=== PATIENT | female | born 1970 | race Two or more races ===

== ENCOUNTER 2021-01-12 12:13 | Inpatient (IN) | payer MEDICAID, OTHER ==
[~2021-01-12] VITALS: Ht 162.6 cm; Wt 118.9 kg
[2021-01-12 13:35] LABS: BASOPHILS % 0.4 % (0.0-2.0); HEMATOCRIT. 48.4 % (36.0-48.0); HEMOGLOBIN. 15.7 g/dL (12.0-16.0); LYMPHOCYTES % 24.7 % (20.0-50.0); MEAN CORPUSCULAR HEMOGLOBIN 24.5 pg (28.0-32.0); MEAN CORPUSCULAR VOLUME 75.5 fL (81.0-99.0); MEAN PLATELET VOLUME 9.8 fl (7.4-10.4); MONOCYTES % 9.7 % (2.0-8.0); NEUTROPHILS % 65.2 % (40.0-76.0); PLATELET 181 x1000/uL (130-400); RED BLOOD CELL COUNT 6.42 mill/uL (4.2-5.4); RED CELL DISTRIBUTION WIDTH 14.9 % (11.6-14.6)
[2021-01-12 13:43] LABS: CHLORIDE 95 mEq/L (98-107)
[2021-01-12] MEDS ORDERED: ALBUTEROL 6.7GM HFA INHALER ORI PRN (19:00)
[2021-01-12] MEDS ORDERED: DEXTROSE 50% WATER 50ML SYRINGE IV PRN (19:00)
[2021-01-12] MEDS ORDERED: PROMETHAZINE/DEXTROMETHORPHAN 6.25-15MG/5ML BOTTLE 120ML PO PRN (19:00)
[2021-01-12] MEDS ORDERED: BENZONATATE 200MG CAPSULE PO PRN (19:00)
[2021-01-12] MEDS ORDERED: ONDANSETRON HCL 4MG/2ML INJ IV PRN (19:00)
[2021-01-12] MEDS ORDERED: CLONIDINE 0.1MG TABLET PO PRN (19:00)
[2021-01-12] MEDS ORDERED: MAGNESIUM/ALUMINUM HYDROXIDE/SIMETHICONE 30ML UDC PO PRN (19:00)
[2021-01-12] MEDS ORDERED: ACETAMINOPHEN 325MG TABLET PO PRN (19:00)
[2021-01-12] MEDS ORDERED: DEXAMETHASONE 10 MG/ML VIAL IV NR (19:30)
[2021-01-12] MEDS ORDERED: AZITHROMYCIN 500 MG in DEXT 5% WATER 250 ML IV SCH (20:00)
[2021-01-12] MEDS ORDERED: ERGOCALCIFEROL 50000UNITS CAPSULE PO NR (20:00)
[2021-01-12] MEDS ORDERED: CEFTRIAXONE 1 G PREMIX 50 ML IV SCH (20:00)
[2021-01-12] MEDS ORDERED: ZOLPIDEM TARTRATE 5MG TABLET PO PRN (21:00)
[2021-01-12] MEDS: BLOOD SUGAR DIAGNOSTIC STRIP TEST SCH (21:00)
[2021-01-12] MEDS: GUAIFENESIN 600MG ER TABLET PO SCH (21:03)
[2021-01-12] MEDS: AMLODIPINE 5MG TABLET PO SCH (21:03)
[2021-01-12] MEDS: INSULIN LISPRO 100 UNITS/ML SUBCUT SCH (21:04)
[2021-01-12] MEDS: ENOXAPARIN 40MG/0.4ML SYR SUBCUT SCH (21:04)
[2021-01-12] MEDS: FAMOTIDINE 20MG TABLET PO SCH (21:05)
[2021-01-12] MEDS ORDERED: INSULIN GLARGINE UD 100 UNITS/ML SYR SUBCUT SCH (22:00)
[2021-01-12] MEDS: SODIUM CHLORIDE 0.9% INJ 3ML FLUSH IVF SCH (22:06)
[2021-01-12 23:10] VITALS: BP 92/40
[2021-01-12] MEDS: ACETAMINOPHEN 325MG TABLET PO PRN (23:32)
[2021-01-13] VITALS: BP 92/40
[2021-01-13 04:00] VITALS: BP 113/70
[2021-01-13] MEDS: SODIUM CHLORIDE 0.9% INJ 3ML FLUSH IVF SCH ×3 (05:14→22:33)
[2021-01-13] MEDS: BLOOD SUGAR DIAGNOSTIC STRIP TEST SCH ×4 (05:53→21:28)
[2021-01-13] MEDS: INSULIN LISPRO 100 UNITS/ML SUBCUT SCH ×5 (05:53→22:35)
[2021-01-13 08:00] VITALS: BP 140/88
[2021-01-13] MEDS: FAMOTIDINE 20MG TABLET PO SCH ×2 (08:22→22:34)
[2021-01-13] MEDS: AMLODIPINE 5MG TABLET PO SCH ×2 (08:25→22:34)
[2021-01-13] MEDS: DEXAMETHASONE 10 MG/ML VIAL IV SCH (08:25)
[2021-01-13] MEDS: GUAIFENESIN 600MG ER TABLET PO SCH ×2 (08:25→22:33)
[2021-01-13 08:46] LABS: BASOPHILS % 0.3 % (0.0-2.0); HEMATOCRIT. 46.1 % (36.0-48.0); HEMOGLOBIN. 14.9 g/dL (12.0-16.0); LYMPHOCYTES % 30.1 % (20.0-50.0); MEAN CORPUSCULAR HEMOGLOBIN 24.6 pg (28.0-32.0); MEAN PLATELET VOLUME 10.2 fl (7.4-10.4); NEUTROPHILS % 60.6 % (40.0-76.0); PLATELET 189 x1000/uL (130-400); RED BLOOD CELL COUNT 6.07 mill/uL (4.2-5.4); RED CELL DISTRIBUTION WIDTH 14.9 % (11.6-14.6)
[2021-01-13 08:54] LABS: CHLORIDE 96 mEq/L (98-107)
[2021-01-13 09:08] LABS: PHOSPHORUS 4.8 mg/dL (2.5-4.9)
[2021-01-13 12:00] VITALS: BP 123/77
[2021-01-13 16:00] VITALS: BP 125/76
[2021-01-13 20:00] VITALS: BP 134/83
[2021-01-13] MEDS: AZITHROMYCIN 500 MG in DEXT 5% WATER 250 ML IV SCH (22:32)
[2021-01-13] MEDS: ENOXAPARIN 40MG/0.4ML SYR SUBCUT SCH (22:32)
[2021-01-13] MEDS: CEFTRIAXONE 1,000 MG in DEXTROSE 5% WATER 50 ML IV SCH (22:32)
[2021-01-13] MEDS: INSULIN GLARGINE UD 100 UNITS/ML SYR SUBCUT SCH (22:35)
[2021-01-14] VITALS: BP 127/72
[2021-01-14 04:00] VITALS: BP 112/63
[2021-01-14] MEDS: BLOOD SUGAR DIAGNOSTIC STRIP TEST SCH ×4 (07:40→20:35)
[2021-01-14 08:00] VITALS: BP 113/75
[2021-01-14] MEDS: AMLODIPINE 5MG TABLET PO SCH ×2 (08:19→23:21)
[2021-01-14] MEDS: DEXAMETHASONE 10 MG/ML VIAL IV SCH (08:19)
[2021-01-14] MEDS: GUAIFENESIN 600MG ER TABLET PO SCH ×2 (08:19→23:21)
[2021-01-14] MEDS: FAMOTIDINE 20MG TABLET PO SCH ×2 (08:20→23:21)
[2021-01-14] MEDS: INSULIN LISPRO 100 UNITS/ML SUBCUT SCH ×7 (08:20→23:24)
[2021-01-14] MEDS: SODIUM CHLORIDE 0.9% INJ 3ML FLUSH IVF SCH ×3 (10:09→23:24)
[2021-01-14 12:00] VITALS: BP 122/68
[2021-01-14] MEDS: ENOXAPARIN 30MG/0.3ML SYR SUBCUT SCH ×2 (13:01→23:22)
[2021-01-14 16:00] VITALS: BP 117/66
[2021-01-14] MEDS: AZITHROMYCIN 500 MG in DEXT 5% WATER 250 ML IV SCH (19:56)
[2021-01-14] MEDS: CEFTRIAXONE 1,000 MG in DEXTROSE 5% WATER 50 ML IV SCH (19:56)
[2021-01-14 20:00] VITALS: BP 128/79
[2021-01-14] MEDS: INSULIN GLARGINE UD 100 UNITS/ML SYR SUBCUT SCH (23:23)
[2021-01-15] VITALS: BP 113/72
[2021-01-15 04:00] VITALS: BP 116/70
[2021-01-15 07:05] LABS: CHLORIDE 99 mEq/L (98-107)
[2021-01-15] MEDS: BLOOD SUGAR DIAGNOSTIC STRIP TEST SCH ×4 (07:40→21:18)
[2021-01-15] MEDS: AMLODIPINE 5MG TABLET PO SCH ×2 (07:59→21:17)
[2021-01-15 08:00] VITALS: BP 118/66
[2021-01-15] MEDS: GUAIFENESIN 600MG ER TABLET PO SCH ×2 (08:00→21:17)
[2021-01-15] MEDS: FAMOTIDINE 20MG TABLET PO SCH ×2 (08:00→21:17)
[2021-01-15] MEDS: DEXAMETHASONE 10 MG/ML VIAL IV SCH (08:00)
[2021-01-15] MEDS: ENOXAPARIN 30MG/0.3ML SYR SUBCUT SCH ×2 (08:00→21:18)
[2021-01-15] MEDS: INSULIN LISPRO 100 UNITS/ML SUBCUT SCH ×7 (08:02→22:44)
[2021-01-15] MEDS: SODIUM CHLORIDE 0.9% INJ 3ML FLUSH IVF SCH ×3 (08:30→21:19)
[2021-01-15 12:00] VITALS: BP 124/86
[2021-01-15 16:00] VITALS: BP 132/88
[2021-01-15 20:00] VITALS: BP 134/75
[2021-01-15] MEDS: INSULIN GLARGINE UD 100 UNITS/ML SYR SUBCUT SCH (22:44)
[2021-01-16] VITALS: BP 115/69
[2021-01-16 04:00] VITALS: BP 114/71
[2021-01-16] MEDS: SODIUM CHLORIDE 0.9% INJ 3ML FLUSH IVF SCH ×3 (05:39→22:29)
[2021-01-16] MEDS: BLOOD SUGAR DIAGNOSTIC STRIP TEST SCH ×4 (06:40→20:10)
[2021-01-16 06:53] LABS: BASOPHILS % 0.6 % (0.0-2.0); EOSINOPHILS % 0.1 % (0.0-5.0); HEMATOCRIT. 44.7 % (36.0-48.0); HEMOGLOBIN. 14.3 g/dL (12.0-16.0); LYMPHOCYTES % 17.7 % (20.0-50.0); MEAN CORPUSCULAR VOLUME 74.8 fL (81.0-99.0); MEAN PLATELET VOLUME 9.2 fl (7.4-10.4); MONOCYTES % 12.2 % (2.0-8.0); NEUTROPHILS % 69.4 % (40.0-76.0); PLATELET 298 x1000/uL (130-400); RED BLOOD CELL COUNT 5.97 mill/uL (4.2-5.4); RED CELL DISTRIBUTION WIDTH 14.5 % (11.6-14.6)
[2021-01-16] MEDS: INSULIN LISPRO 100 UNITS/ML SUBCUT SCH ×7 (07:14→22:29)
[2021-01-16 07:20] LABS: CHLORIDE 101 mEq/L (98-107)
[2021-01-16 08:00] VITALS: BP 124/81
[2021-01-16] MEDS: METFORMIN HCL 500MG TABLET PO SCH ×3 (08:10→18:11)
[2021-01-16] MEDS: ENOXAPARIN 30MG/0.3ML SYR SUBCUT SCH ×2 (09:00→20:12)
[2021-01-16] MEDS: GUAIFENESIN 600MG ER TABLET PO SCH ×2 (09:46→20:10)
[2021-01-16] MEDS: AMLODIPINE 5MG TABLET PO SCH ×2 (09:47→22:29)
[2021-01-16] MEDS: DEXAMETHASONE 10 MG/ML VIAL IV SCH (09:47)
[2021-01-16] MEDS: FAMOTIDINE 20MG TABLET PO SCH ×2 (09:47→20:11)
[2021-01-16 12:00] VITALS: BP 130/80
[2021-01-16 16:00] VITALS: BP 121/78
[2021-01-16 20:00] VITALS: BP 135/75
[2021-01-16] MEDS: INSULIN GLARGINE UD 100 UNITS/ML SYR SUBCUT SCH (22:27)
[2021-01-17] VITALS: BP 114/73
[2021-01-17 04:00] VITALS: BP 120/76
[2021-01-17] MEDS: SODIUM CHLORIDE 0.9% INJ 3ML FLUSH IVF SCH ×3 (06:41→22:50)
[2021-01-17] MEDS: BLOOD SUGAR DIAGNOSTIC STRIP TEST SCH ×4 (06:43→21:00)
[2021-01-17] MEDS: INSULIN LISPRO 100 UNITS/ML SUBCUT SCH ×7 (07:51→22:52)
[2021-01-17 08:00] VITALS: BP 136/76
[2021-01-17] MEDS: ENOXAPARIN 30MG/0.3ML SYR SUBCUT SCH ×2 (09:37→20:05)
[2021-01-17] MEDS: DEXAMETHASONE 10 MG/ML VIAL IV SCH (09:37)
[2021-01-17] MEDS: GUAIFENESIN 600MG ER TABLET PO SCH ×2 (09:37→20:06)
[2021-01-17] MEDS: METFORMIN HCL 500MG TABLET PO SCH ×2 (09:38→17:29)
[2021-01-17] MEDS: AMLODIPINE 5MG TABLET PO SCH ×2 (09:38→20:05)
[2021-01-17] MEDS: FAMOTIDINE 20MG TABLET PO SCH ×2 (09:38→20:06)
[2021-01-17 12:00] VITALS: BP 118/64
[2021-01-17 16:00] VITALS: BP 140/92
[2021-01-17 20:00] VITALS: BP 110/65
[2021-01-17] MEDS: ACETAMINOPHEN 325MG TABLET PO PRN (20:06)
[2021-01-17] MEDS: INSULIN GLARGINE UD 100 UNITS/ML SYR SUBCUT SCH (22:51)
[2021-01-18] VITALS: BP 115/65
[2021-01-18 04:00] VITALS: BP 121/70
[2021-01-18] MEDS: SODIUM CHLORIDE 0.9% INJ 3ML FLUSH IVF SCH ×2 (06:00→14:37)
[2021-01-18] MEDS: METFORMIN HCL 500MG TABLET PO SCH ×2 (07:47→17:52)
[2021-01-18 07:59] VITALS: BP 116/79
[2021-01-18] MEDS: BLOOD SUGAR DIAGNOSTIC STRIP TEST SCH ×3 (08:05→17:48)
[2021-01-18] MEDS: GUAIFENESIN 600MG ER TABLET PO SCH (08:06)
[2021-01-18] MEDS: DEXAMETHASONE 10 MG/ML VIAL IV SCH (08:06)
[2021-01-18] MEDS: FAMOTIDINE 20MG TABLET PO SCH (08:07)
[2021-01-18] MEDS: ENOXAPARIN 30MG/0.3ML SYR SUBCUT SCH (08:07)
[2021-01-18] MEDS: AMLODIPINE 5MG TABLET PO SCH (08:08)
[2021-01-18] MEDS: INSULIN LISPRO 100 UNITS/ML SUBCUT SCH ×6 (08:10→17:53)
[2021-01-18 12:00] VITALS: BP 122/70
[2021-01-18 16:00] VITALS: BP 135/88
[2021-01-18 18:24] VITALS: BP 135/88
== END 2021-01-18 21:00 | disposition home or self-care (01) | DRG 720 ==
LOC: ER 12:13 → MICUSO 16:19 → 7WST 22:24
PROVIDERS: ADMIT Internal Medicine; ATTEND Internal Medicine
DX: A41.89 Other specified sepsis (principal); U07.1 COVID-19; J96.01 Acute respiratory failure with hypoxia; I10 Essential (primary) hypertension; J12.82 Pneumonia due to coronavirus disease 2019; E11.9 Type 2 diabetes mellitus without complications; E66.01 Morbid (severe) obesity due to excess calories; Z68.42 Body mass index [BMI] 45.0-49.9, adult; Z78.9 Other specified health status; Z83.3 Family history of diabetes mellitus; Z79.4 Long term (current) use of insulin
CPT/HCPCS: 36415; 71045; 80048; 80053; 82728; 82962; 83036; 83735; 83880; 84100; 84145; 84484; 85025; 86140; 93005; 93970; 99285; J0456; J0696; J1100; J1650; J1815; J7060; U0003

== ENCOUNTER 2024-05-12 12:58 | Inpatient (IN) | payer SELFPAY ==
[~2024-05-12] VITALS: Ht 162.6 cm; Wt 116.1 kg
[2024-05-12 13:03] VITALS: O2SAT 98
[2024-05-12] MEDS ORDERED: ERYT1OIN6 LEFTEYE (13:19)
[2024-05-12] MEDS: LABETALOL HCL 200MG TABLET PO SCH (13:55)
[2024-05-12] MEDS: LABETALOL HCL 100MG TABLET PO ONE (15:02)
[2024-05-12 16:41] LABS: BASOPHILS % 0.4 % (0.0-2.0); DIFFERENTIAL COMMENT 0; EOSINOPHILS % 0.8 % (0.0-5.0); HEMATOCRIT. 44.7 % (36.0-48.0); HEMOGLOBIN. 14.5 g/dL (12.0-16.0); LYMPHOCYTES % 32.4 % (20.0-50.0); MEAN CORPUSCULAR HGB CONC 32.5 g/dL (31.0-37.0); MEAN PLATELET VOLUME 8.5 fl (7.4-10.4); MONOCYTES % 4.7 % (2.0-8.0); NEUTROPHILS % 61.7 % (40.0-76.0); PLATELET 340 x1000/uL (130-400); RED CELL DISTRIBUTION WIDTH 14.7 % (11.6-14.6); WHITE BLOOD COUNT 9.2 x1000/uL (4.5-11.0)
[2024-05-12 16:45] LABS: CHLORIDE 95 mEq/L (98-107); POTASSIUM 3.5 mEq/L (3.5-5.1); SODIUM 132 mEq/L (136-145)
[2024-05-12 16:46] LABS: CARBON DIOXIDE 26 mEq/L (21-32)
[2024-05-12 16:47] LABS: CALCIUM 9.1 mg/dL (8.7-10.4)
[2024-05-12 16:51] LABS: CREATININE 0.9 mg/dL (0.6-1.0); UREA NITROGEN BLOOD 13 mg/dL (9-23)
[2024-05-12 16:54] LABS: GLUCOSE 413 mg/dL (70-105)
[2024-05-12] MEDS: SODIUM CHLORIDE 0.9% 1,000 ML IV ONE (17:42)
[2024-05-12] MEDS ORDERED: DEXTROSE 50% WATER 50ML SYRINGE IV PRN (19:15)
[2024-05-12] MEDS ORDERED: HYDRALAZINE 20MG/ML VIAL IV PRN (19:15)
[2024-05-12] MEDS ORDERED: ONDANSETRON HCL 4MG/2ML INJ IV PRN (19:15)
[2024-05-12] MEDS ORDERED: MAGNESIUM/ALUMINUM HYDROXIDE/SIMETHICONE 30ML UDC PO PRN (19:15)
[2024-05-12] MEDS ORDERED: NALOXONE HCL 0.4MG/ML VIAL IV PRN (19:15)
[2024-05-12] MEDS ORDERED: HYDROCODONE/ACETAMINOPHEN 5/325MG TABLET PO PRN (19:15)
[2024-05-12] MEDS ORDERED: HYDRALAZINE 10 MG in SODIUM CHLORIDE 0.9% 49.5 ML IV PRN (19:30)
[2024-05-12] MEDS: AMLODIPINE 10MG TABLET PO SCH (20:04)
[2024-05-12] MEDS: ENOXAPARIN 30MG/0.3ML SYR SUBCUT SCH (20:05)
[2024-05-12] MEDS ORDERED: BACITRACIN/POLYMYXIN B SULFATE OPHTH OINT 3.5GM BOTHEYE SCH (21:00)
[2024-05-12 23:16] VITALS: BP 218/109; PULSE 85; RESP 18; TEMP 98.6
[2024-05-13] VITALS (66 sets, daily range): BP systolic 125–214; BP diastolic 74–108; PULSE 76–100; RESP 16–24; TEMP 97.2–98.5
[2024-05-13] MEDS: CLONIDINE 0.1MG TABLET PO PRN (00:39)
[2024-05-13] MEDS ORDERED: NICARDIPINE 100 MG in SODIUM CHLORIDE 0.9% 60 ML IV PRN (00:45)
[2024-05-13] MEDS: NICARDIPINE 50 MG in SODIUM CHLORIDE 0.9% 250 ML IV PRN (01:00)
[2024-05-13 01:47] LABS: CLARITY URINE CLEAR (CLEAR); COLOR URINE YELLOW (YELLOW); GLUCOSE URINE 3+ (NEGATIVE); KETONES URINE TRACE (NEGATIVE); LEUKOCYTE ESTERASE URINE NEGATIVE (NEGATIVE); NITRITE URINE NEGATIVE (NEGATIVE); OCCULT BLOOD URINE NEGATIVE (NEGATIVE); PH URINE 6.5 (4.5-8.0); PROTEIN URINE TRACE (NEGATIVE); SPECIFIC GRAVITY URINE 1.019 (1.005-1.030); UROBILINOGEN URINE 0.2 E.U./dL (0.2-1.0)
[2024-05-13 02:00] LABS: BACTERIA URINE NONE SEEN; RBC URINE 0-2 /hpf (0-2); SQUAMOUS EPITHELIAL CELL URINE NONE SEEN /lpf (RARE/1+); WBC URINE NONE SEEN /hpf (0-2)
[2024-05-13 04:42] LABS: BASOPHILS % 0.6 % (0.0-2.0); DIFFERENTIAL COMMENT 0; EOSINOPHILS % 0.9 % (0.0-5.0); HEMATOCRIT. 41.4 % (36.0-48.0); HEMOGLOBIN. 13.3 g/dL (12.0-16.0); LYMPHOCYTES % 23.4 % (20.0-50.0); MEAN CORPUSCULAR HEMOGLOBIN 24.8 pg (28.0-32.0); MEAN CORPUSCULAR HGB CONC 32.1 g/dL (31.0-37.0); MEAN CORPUSCULAR VOLUME 77.1 fL (81.0-99.0); MEAN PLATELET VOLUME 8.9 fl (7.4-10.4); NEUTROPHILS % 70.1 % (40.0-76.0); PLATELET 334 x1000/uL (130-400); RED BLOOD CELL COUNT 5.37 mill/uL (4.2-5.4); RED CELL DISTRIBUTION WIDTH 14.3 % (11.6-14.6)
[2024-05-13 05:09] LABS: CHLORIDE 95 mEq/L (98-107); POTASSIUM 3.1 mEq/L (3.5-5.1); SODIUM 131 mEq/L (136-145)
[2024-05-13 05:10] LABS: CALCIUM 8.5 mg/dL (8.7-10.4); CARBON DIOXIDE 23 mEq/L (21-32)
[2024-05-13 05:11] LABS: TROPONIN I HIGH SENSITIVITY 13 ng/L (3.0-34)
[2024-05-13 05:14] LABS: TRIGLYCERIDE 169 mg/dL (0-150)
[2024-05-13 05:15] LABS: CREATININE 0.9 mg/dL (0.6-1.0); GLUCOSE 389 mg/dL (70-105); PROTEIN TOTAL 6.6 g/dL (6.0-8.3); T4 FREE 1.38 ng/dL (0.89-1.76); THYROID STIMULATING HORMONE 1.64 uIU/mL (0.55-4.78); UREA NITROGEN BLOOD 12 mg/dL (9-23)
[2024-05-13 05:16] LABS: LDL CHOLESTEROL 103 mg/dL (5-100)
[2024-05-13 05:17] LABS: ALANINE AMINOTRANSFERASE 10 IU/L (10-49); ALBUMIN 3.6 g/dL (3.2-4.8); ASPARTATE AMINOTRANSFERASE 10 IU/L (<34); BILIRUBIN DIRECT 0.2 mg/dL (<=3.0); CHOLESTEROL 161 mg/dL (<200); HDL CHOLESTEROL 46 mg/dL (>65); PHOSPHORUS 3.4 mg/dL (2.5-4.9)
[2024-05-13 05:18] LABS: BILIRUBIN TOTAL 0.6 mg/dL (0.1-1.0)
[2024-05-13] MEDS: PANTOPRAZOLE SODIUM 40 MG/VIAL IV SCH (08:32)
[2024-05-13] MEDS ORDERED: BACITRACIN/POLYMYXIN B SULFATE OPHTH OINT 3.5GM BOTHEYE SCH (09:00)
[2024-05-13] MEDS ORDERED: DEXTROSE 50% WATER 50ML SYRINGE IV PRN (09:45)
[2024-05-13] MEDS: POTASSIUM CHLORIDE 20MEQ TABLET SR PO NR (11:44)
[2024-05-13] MEDS: HYDRALAZINE 20MG/ML VIAL IV PRN (11:49)
[2024-05-13] MEDS: BLOOD SUGAR DIAGNOSTIC STRIP TEST SCH (12:01)
[2024-05-13] MEDS: INSULIN LISPRO 100 UNITS/ML SUBCUT SCH (12:05)
[2024-05-13] MEDS: CIPROFLOXACIN 0.3% OPHTH SOLN 2.5ML RIGHTEYE SCH (12:06)
[2024-05-13] MEDS: LOSARTAN 50 MG TABLET PO SCH (12:10)
[2024-05-13] MEDS: ACETAMINOPHEN 325MG TABLET PO PRN (16:19)
[2024-05-14] VITALS (95 sets, daily range): BP systolic 122–164; BP diastolic 68–98; PULSE 75–106; RESP 15–26; TEMP 97.1–99
[2024-05-14 04:27] LABS: BASOPHILS % 0.2 % (0.0-2.0); DIFFERENTIAL COMMENT 0; EOSINOPHILS % 1.3 % (0.0-5.0); HEMATOCRIT. 41.2 % (36.0-48.0); HEMOGLOBIN. 13.3 g/dL (12.0-16.0); LYMPHOCYTES % 26.5 % (20.0-50.0); MEAN CORPUSCULAR HGB CONC 32.3 g/dL (31.0-37.0); MEAN CORPUSCULAR VOLUME 77.4 fL (81.0-99.0); MEAN PLATELET VOLUME 8.7 fl (7.4-10.4); PLATELET 336 x1000/uL (130-400); RED BLOOD CELL COUNT 5.32 mill/uL (4.2-5.4); WHITE BLOOD COUNT 9.2 x1000/uL (4.5-11.0)
[2024-05-14 04:30] LABS: CHLORIDE 100 mEq/L (98-107); POTASSIUM 3.6 mEq/L (3.5-5.1); SODIUM 134 mEq/L (136-145)
[2024-05-14 04:31] LABS: CALCIUM 8.8 mg/dL (8.7-10.4); CARBON DIOXIDE 24 mEq/L (21-32)
[2024-05-14 04:35] LABS: UREA NITROGEN BLOOD 14 mg/dL (9-23)
[2024-05-14 04:36] LABS: CREATININE 0.8 mg/dL (0.6-1.0); GLUCOSE 310 mg/dL (70-105)
[2024-05-14 04:37] LABS: ALANINE AMINOTRANSFERASE 10 IU/L (10-49)
[2024-05-14 04:38] LABS: ALBUMIN 3.9 g/dL (3.2-4.8); ASPARTATE AMINOTRANSFERASE 10 IU/L (<34); BILIRUBIN DIRECT 0.3 mg/dL (<=3.0); PHOSPHORUS 3.4 mg/dL (2.5-4.9)
[2024-05-14 04:39] LABS: BILIRUBIN TOTAL 0.8 mg/dL (0.1-1.0); PROTEIN TOTAL 6.6 g/dL (6.0-8.3)
[2024-05-14 08:56] LABS: HEPATITIS B SURFACE ANTIGEN NEGATIVE (Negative)
[2024-05-14 09:17] LABS: HEPATITIS C AB NON REACTIVE (Neg) (Negative)
[2024-05-14] MEDS: MAGNESIUM 2 G PREMIX 50 ML IV NR (12:08)
[2024-05-14] MEDS ORDERED: AMLO2.5T2 MT (13:59)
[2024-05-14] MEDS: LOSARTAN 50 MG TABLET PO NR (17:13)
[2024-05-15] VITALS (72 sets, daily range): BP systolic 111–162; BP diastolic 67–102; PULSE 77–107; RESP 13–27; TEMP 97.5–98.4
[2024-05-15 05:26] LABS: CHLORIDE 100 mEq/L (98-107); POTASSIUM 3.3 mEq/L (3.5-5.1); SODIUM 132 mEq/L (136-145)
[2024-05-15 05:27] LABS: CALCIUM 8.5 mg/dL (8.7-10.4); CARBON DIOXIDE 23 mEq/L (21-32)
[2024-05-15 05:30] LABS: HEMATOCRIT 40.3 % (36.0-48.0); HEMOGLOBIN 13.2 g/dL (12.0-16.0); MEAN CORPUSCULAR HGB CONC 32.6 g/dL (31.0-37.0); MEAN CORPUSCULAR VOLUME 76.7 fL (81.0-99.0); PLATELET 339 x1000/uL (130-400); RED BLOOD CELL COUNT 5.25 mill/uL (4.2-5.4); RED CELL DISTRIBUTION WIDTH 14.8 % (11.6-14.6); WHITE BLOOD COUNT 8.2 x1000/uL (4.5-11.0)
[2024-05-15 05:32] LABS: CREATININE 0.9 mg/dL (0.6-1.0); GLUCOSE 242 mg/dL (70-105); UREA NITROGEN BLOOD 19 mg/dL (9-23)
[2024-05-15] MEDS: LOSARTAN 100 MG TABLET PO SCH (08:17)
[2024-05-15] MEDS ORDERED: INFLUENZA VACCINE 05/PF 0.5 ML SYRINGE IM ONE (09:00)
[2024-05-15] MEDS: INFLUENZA VACCINE 05/PF 0.5 ML SYRINGE IM ONE (09:15)
[2024-05-15] MEDS: MAGNESIUM 2 G PREMIX 50 ML IV NR (11:46)
[2024-05-15] MEDS: POTASSIUM CHLORIDE 20MEQ TABLET SR PO NR (11:46)
[2024-05-15] MEDS: PNEUMOCOCCAL 23-VAL P-SAC VAC 0.5 ML IM ONE (12:21)
[2024-05-15] MEDS ORDERED: AMLO10TA80 PO (14:21)
[2024-05-15] MEDS ORDERED: LOSA100T33 PO (14:21)
[2024-05-15] MEDS ORDERED: METF-416 MT (14:22)
[2024-05-15] MEDS: CLONIDINE 0.1MG TABLET PO SCH (16:20)
[2024-05-16] VITALS (42 sets, daily range): BP systolic 104–163; BP diastolic 59–92; PULSE 65–95; RESP 15–24; TEMP 97.8–98.3
[2024-05-16] MEDS ORDERED: AMLO10TA80 MT (16:04)
[2024-05-16] MEDS ORDERED: LOSA100T33 MT (16:04)
[2024-05-16] MEDS ORDERED: METF-416 MT (16:04)
== END 2024-05-16 17:15 | disposition home or self-care (01) | DRG 199 ==
LOC: ER 12:58 → 6WST 18:37 → MICUNO 05-13 00:24 → MICUSO 05-13 06:15 → 7WST 05-16 15:13
PROVIDERS: ADMIT Family Medicine Adult Medicine; ATTEND Family Medicine Adult Medicine
DX: I16.0 Hypertensive urgency (principal); E88.810 Metabolic syndrome; E11.65 Type 2 diabetes mellitus with hyperglycemia; E66.01 Morbid (severe) obesity due to excess calories; Z68.41 Body mass index [BMI] 40.0-44.9, adult; E83.42 Hypomagnesemia; E87.6 Hypokalemia; I10 Essential (primary) hypertension; E78.5 Hyperlipidemia, unspecified; H10.9 Unspecified conjunctivitis; Z79.4 Long term (current) use of insulin; Z98.891 History of uterine scar from previous surgery
CPT/HCPCS: 36415; 80048; 80061; 80076; 81003; 82962; 83036; 83735; 84100; 84439; 84443; 84484; 85025; 85027; 86705; 87340; 90686; 90732; 93306; 93970; 99285; A6261; C9113; J0360; J1650; J1815; J3475; J7030